=== PATIENT | female | born 1950 | race Asian ===

== ENCOUNTER → 2016-10-03 | Outpatient (CLI) | payer OTHER ==
[~2016-10-03] MED LIST: ALEN35TA32 PO; CALC-590 PO; ESTROGEN PO; METO50 PO; VERA240C PO
== END | disposition home or self-care (01) ==
LOC: EMPHLTH 14:57
PROVIDERS: ATTEND Internal Medicine
DX: I51.7 Cardiomegaly (principal); R91.8 Other nonspecific abnormal finding of lung field

== ENCOUNTER 2017-12-07 18:57 | Emergency (ER) | payer MEDICARE, OTHER ==
[~2017-12-07] VITALS: Ht 149.9 cm; Wt 58.2 kg
[2017-12-07] MEDS ORDERED: TELM1TAB2 PO (19:02)
[2017-12-07] MEDS ORDERED: NIFE10 PO (19:02)
[2017-12-07] MEDS ORDERED: NIFEdipine 10 MG CAPSULE PO ONE ×2 (19:30)
[2017-12-07 19:35] LABS: BASOPHILS % (AUTO) 0.8 % (0.0-2.0); EOSINOPHILS % (AUTO) 5.9 % (1.0-6.0); HEMATOCRIT 43.1 % (36-46); HEMOGLOBIN 14.8 g/dL (12.0-16.0); LYMPHOCYTES # (AUTO) 2.3 K/uL (1.0-4.8); LYMPHOCYTES % (AUTO) 34.3 % (22.0-44.0); MEAN CORPUSCULAR HEMOGLOBIN 29.5 pg (26.0-34.0); MEAN CORPUSCULAR HGB CONC 34.3 G/dL (31.0-37.0); MEAN CORPUSCULAR VOLUME 86 fL (80-100); MONOCYTES # (AUTO) 0.4 K/uL (0.1-1.0); MONOCYTES % (AUTO) 6.7 % (2.0-9.0); NEUTROPHILS # (AUTO) 3.5 K/uL (1.8-7.7); NEUTROPHILS % (AUTO) 52.3 % (40.0-70.0); PLATELET COUNT (AUTO) 231 K/uL (150-450); RED CELL DISTRIBUTION WIDTH 12.9 % (11.5-14.5)
[2017-12-07 19:46] LABS: CALCIUM, TOTAL 10.9 mg/dL (8.8-10.5); CREATININE 0.97 mg/dL (0.60-1.30); POTASSIUM 3.3 mmol/L (3.5-5.1)
[2017-12-07 19:52] LABS: ALBUMIN 3.9 g/dL (3.4-5.0); BILIRUBIN,TOTAL 0.5 mg/dL (0.1-1.0); TOTAL PROTEIN, SERUM 8.3 g/dL (6.4-8.2)
[2017-12-07 20:12] LABS: GLUCOSE,POINT OF CARE 106 MG/DL (70-110)
[2017-12-07 20:56] VITALS: BP 126/71
== END 2017-12-07 20:29 | disposition home or self-care (01) ==
LOC: EMS 18:59
DX: R42 Dizziness and giddiness (principal); I10 Essential (primary) hypertension; Z88.2 Allergy status to sulfonamides; Z90.710 Acquired absence of both cervix and uterus; Z79.899 Other long term (current) drug therapy
CPT/HCPCS: 70450; 82948; 93005; 99285

== ENCOUNTER 2018-12-14 14:08 | Emergency (ER) | payer MEDICARE, OTHER ==
[~2018-12-14] VITALS: Ht 149.9 cm; Wt 57.3 kg
[~2018-12-14 14:08] MED LIST changes: -ALEN35TA32 PO; -ESTROGEN PO; +NIFE10 PO; +TELM1TAB2 PO; -VERA240C PO
[2018-12-14] MEDS ORDERED: METO50 PO (14:12)
[2018-12-14 15:42] LABS: BASOPHILS % (AUTO) 0.8 % (0.0-2.0); EOSINOPHILS % (AUTO) 8.3 % (1.0-6.0); HEMATOCRIT 46.2 % (36-46); HEMOGLOBIN 15.4 g/dL (12.0-16.0); MEAN CORPUSCULAR HEMOGLOBIN 28.5 pg (26.0-34.0); MEAN CORPUSCULAR HGB CONC 33.3 G/dL (31.0-37.0); MEAN CORPUSCULAR VOLUME 86 fL (80-100); MONOCYTES # (AUTO) 0.5 K/uL (0.1-1.0); MONOCYTES % (AUTO) 6.8 % (2.0-9.0); NEUTROPHILS # (AUTO) 3.8 K/uL (1.8-7.7); NEUTROPHILS % (AUTO) 47.1 % (40.0-70.0); PLATELET COUNT (AUTO) 230 K/uL (150-450); RED CELL DISTRIBUTION WIDTH 13.3 % (11.5-14.5)
[2018-12-14 16:02] LABS: CREATININE 0.96 mg/dL (0.60-1.30); POTASSIUM 3.4 mmol/L (3.5-5.1)
[2018-12-14 16:28] LABS: BILIRUBIN,TOTAL 0.4 mg/dL (0.1-1.0); TOTAL PROTEIN, SERUM 8.9 g/dL (6.4-8.2)
[2018-12-14] MEDS ORDERED: POTASSIUM CHLORIDE 20 MEQ ER TABLET PO ONE (17:00)
[2018-12-14 17:23] VITALS: BP 128/75
== END 2018-12-14 17:24 | disposition home or self-care (01) ==
LOC: EMS 14:09
DX: R07.89 Other chest pain (principal); R12 Heartburn; I10 Essential (primary) hypertension; Z90.710 Acquired absence of both cervix and uterus; Z88.2 Allergy status to sulfonamides; Z88.8 Allergy status to other drugs, medicaments and biological substances
CPT/HCPCS: 93005

== ENCOUNTER → 2020-07-16 | Emergency (ER) | payer MEDICARE, OTHER ==
[~2020-07-16] VITALS: Ht 149.9 cm; Wt 53.6 kg
[~2020-07-16] MED LIST changes: +IOVERSOL 350 MG/ML 100 ML VIAL ONE; +POTASSIUM CHLORIDE 20 MEQ ER TABLET PO ONE; +SODIUM CHLORIDE 0.9% 1,000 ML IV ONE; +SODIUM CHLORIDE 0.9% 100 ML ONE; +SODIUM CHLORIDE 0.9% 500 ML IV ONE
[2020-07-16 02:40] LABS: APPEARANCE,URINE CLEAR (CLEAR); BILIRUBIN,URINE NEGATIVE (NEGATIVE); GLUCOSE, URINE (UA) NEGATIVE (NEGATIVE); KETONES,URINE NEGATIVE (NEGATIVE); LEUKOCYTE ESTERASE ,URINE SMALL (NEGATIVE); NITRATE,URINE NEGATIVE (NEGATIVE); OCCULT BLOOD,URINE NEGATIVE (NEGATIVE); PROTEIN,URINE NEGATIVE (NEGATIVE); UROBILINOGEN,URINE 0.2 mg/dL (<=1.0)
[2020-07-16 02:54] LABS: BASOPHILS % (AUTO) 0.4 % (0.0-2.0); HEMOGLOBIN 13.8 g/dL (12.0-16.0); LYMPHOCYTES # (AUTO) 2.7 K/uL (1.0-4.8); LYMPHOCYTES % (AUTO) 36.8 % (22.0-44.0); MEAN CORPUSCULAR HEMOGLOBIN 29.7 pg (26.0-34.0); MEAN CORPUSCULAR HGB CONC 33.5 G/dL (31.0-37.0); MEAN CORPUSCULAR VOLUME 89 fL (80-100); MONOCYTES # (AUTO) 0.5 K/uL (0.1-1.0); MONOCYTES % (AUTO) 6.8 % (2.0-9.0); NEUTROPHILS # (AUTO) 3.4 K/uL (1.8-7.7); PLATELET COUNT (AUTO) 243 K/uL (150-450); RED BLOOD CELL COUNT(AUTO) 4.64 MIL/uL (4.00-5.20); RED CELL DISTRIBUTION WIDTH 13.2 % (11.5-14.5)
[2020-07-16 02:54] LABS: BACTERIA,URINE Rare /HPF (None Seen); RBC,URINE None Seen /HPF (0-2)
[2020-07-16 02:55] LABS: SQUAMOUS EPITHELIAL CELL,UR Rare /LPF (None Seen)
[2020-07-16 03:09] LABS: ALBUMIN 3.7 g/dL (3.4-5.0); BILIRUBIN,TOTAL 0.3 mg/dL (0.1-1.0); CALCIUM, TOTAL 9.5 mg/dL (8.8-10.5); CREATININE 0.97 mg/dL (0.60-1.30); MAGNESIUM 1.9 mg/dL (1.80-2.40); PHOSPHORUS 2.7 mg/dL (2.5-4.9); TOTAL PROTEIN, SERUM 7.8 g/dL (6.4-8.2)
[2020-07-16 03:11] LABS: POTASSIUM 2.7 mmol/L (3.5-5.1)
[2020-07-16] MEDS: POTASSIUM CHL 10 MEQ/WATER 50 ML IV SCH ×3 (03:52→07:29)
[2020-07-16 07:00] LABS: COVID AG,FIA SOURCE NASOPHARYNGEAL
[2020-07-16 11:30] VITALS: BP 127/68
== END | disposition home or self-care (01) ==
LOC: EMS 01:38
DX: E87.6 Hypokalemia (principal); R00.2 Palpitations; I10 Essential (primary) hypertension; Z88.2 Allergy status to sulfonamides; Z90.710 Acquired absence of both cervix and uterus; Z20.828 Contact with and (suspected) exposure to other viral communicable diseases
CPT/HCPCS: 36415; 71045; 71275; 80053; 81001; 82550; 83735; 83880; 84100; 84132; 84484; 85025; 85379; 87086; 87426; 93005; 93971; 96365; 96366; 99285; J3480; J7030; J7040; J7050; Q9967

== ENCOUNTER 2020-07-17 07:13 | Emergency (ER) | payer MEDICARE, OTHER ==
[~2020-07-17] VITALS: Ht 151.1 cm; Wt 53.6 kg
[~2020-07-17 07:13] MED LIST changes: -IOVERSOL 350 MG/ML 100 ML VIAL ONE; -POTASSIUM CHLORIDE 20 MEQ ER TABLET PO ONE; -SODIUM CHLORIDE 0.9% 1,000 ML IV ONE; -SODIUM CHLORIDE 0.9% 100 ML ONE; -SODIUM CHLORIDE 0.9% 500 ML IV ONE
[2020-07-17 08:38] LABS: BASOPHILS % (AUTO) 0.8 % (0.0-2.0); EOSINOPHILS % (AUTO) 10.9 % (1.0-6.0); HEMATOCRIT 42.5 % (36-46); HEMOGLOBIN 14.1 g/dL (12.0-16.0); LYMPHOCYTES # (AUTO) 1.9 K/uL (1.0-4.8); LYMPHOCYTES % (AUTO) 40.5 % (22.0-44.0); MEAN CORPUSCULAR HEMOGLOBIN 29.6 pg (26.0-34.0); MEAN CORPUSCULAR HGB CONC 33.2 G/dL (31.0-37.0); MEAN CORPUSCULAR VOLUME 89 fL (80-100); MONOCYTES # (AUTO) 0.3 K/uL (0.1-1.0); MONOCYTES % (AUTO) 6.4 % (2.0-9.0); NEUTROPHILS # (AUTO) 1.9 K/uL (1.8-7.7); NEUTROPHILS % (AUTO) 41.4 % (40.0-70.0); PLATELET COUNT (AUTO) 246 K/uL (150-450); RED BLOOD CELL COUNT(AUTO) 4.75 MIL/uL (4.00-5.20); RED CELL DISTRIBUTION WIDTH 13.6 % (11.5-14.5)
[2020-07-17 08:46] LABS: ANION GAP 2 mmol/L (8-16); CALCIUM, TOTAL 10.2 mg/dL (8.8-10.5); CARBON DIOXIDE 31 mmol/L (22-29); CHLORIDE 106 mmol/L (98-107); CREATININE 0.85 mg/dL (0.60-1.30); GLOMERULAR FILTR. RATE CALC > 60 mL/min (>60); GLUCOSE,RANDOM 106 mg/dL (70-110); POTASSIUM 4.2 mmol/L (3.5-5.1); SODIUM SERUM 139 mmol/L (136-145); UREA NITROGEN, BLOOD 10 mg/dL (7-18)
[2020-07-17 08:52] LABS: ALANINE AMINOTRANSFERASE 25 U/L (12-78); ALBUMIN 3.7 g/dL (3.4-5.0); ALKALINE PHOSPHATASE 91 U/L (46-116); ASPARTATE AMINOTRANSFERASE 21 U/L (15-37); BILIRUBIN,TOTAL 0.6 mg/dL (0.1-1.0); LIPASE 122 U/L (73-393)
[2020-07-17 11:34] VITALS: BP 146/79
== END 2020-07-17 13:34 | disposition home or self-care (01) ==
LOC: EMS 07:13
DX: R00.2 Palpitations (principal); I10 Essential (primary) hypertension; Z88.2 Allergy status to sulfonamides; Z88.8 Allergy status to other drugs, medicaments and biological substances; Z79.899 Other long term (current) drug therapy
CPT/HCPCS: 82948; 83735; 93005; 36415-L1; 36415-TC; 71045-TC

== ENCOUNTER 2021-01-26 02:47 | Emergency (ER) | payer MEDICARE, OTHER ==
[~2021-01-26] VITALS: Ht 149.9 cm; Wt 47.2 kg
[2021-01-26] MEDS ORDERED: POTA8TAB71 PO (03:05)
[2021-01-26] MEDS ORDERED: SLOMG PO (03:05)
[2021-01-26] MEDS ORDERED: TELM40 PO (03:05)
[2021-01-26] MEDS ORDERED: SODIUM CHLORIDE 0.9% 500 ML IV ONE (03:15)
[2021-01-26 03:30] LABS: EOSINOPHILS % (AUTO) 7.3 % (1.0-6.0); HEMOGLOBIN 14.2 g/dL (12.0-16.0); LYMPHOCYTES # (AUTO) 3.8 K/uL (1.0-4.8); LYMPHOCYTES % (AUTO) 49.6 % (22.0-44.0); MEAN CORPUSCULAR HEMOGLOBIN 29.1 pg (26.0-34.0); MEAN CORPUSCULAR HGB CONC 33.1 G/dL (31.0-37.0); MEAN CORPUSCULAR VOLUME 88 fL (80-100); MONOCYTES # (AUTO) 0.6 K/uL (0.1-1.0); MONOCYTES % (AUTO) 7.3 % (2.0-9.0); NEUTROPHILS # (AUTO) 2.6 K/uL (1.8-7.7); NEUTROPHILS % (AUTO) 34.8 % (40.0-70.0); PLATELET COUNT (AUTO) 214 K/uL (150-450); RED BLOOD CELL COUNT(AUTO) 4.89 MIL/uL (4.00-5.20); RED CELL DISTRIBUTION WIDTH 13.6 % (11.5-14.5)
[2021-01-26] MEDS ORDERED: ONDANSETRON HCL 4 MG/2 ML VIAL IVP ONE (03:30)
[2021-01-26 03:38] LABS: CREATININE 1.16 mg/dL (0.60-1.30)
[2021-01-26 03:41] LABS: PROTHROMBIN TIME 10.2 SEC (9.4-11.6)
[2021-01-26 03:43] LABS: APPEARANCE,URINE CLEAR (CLEAR); BILIRUBIN,URINE NEGATIVE (NEGATIVE); GLUCOSE, URINE (UA) NEGATIVE (NEGATIVE); KETONES,URINE NEGATIVE (NEGATIVE); LEUKOCYTE ESTERASE ,URINE SMALL (NEGATIVE); NITRATE,URINE NEGATIVE (NEGATIVE); OCCULT BLOOD,URINE NEGATIVE (NEGATIVE); PH,URINE 7.5 (5.0-8.0); PROTEIN,URINE NEGATIVE (NEGATIVE); UROBILINOGEN,URINE 0.2 mg/dL (<=1.0)
[2021-01-26 03:51] LABS: BACTERIA,URINE Few /HPF (None Seen); RBC,URINE 0-2 /HPF (0-2)
[2021-01-26 04:03] LABS: ALBUMIN 4.1 g/dL (3.4-5.0); BILIRUBIN,TOTAL 0.5 mg/dL (0.1-1.0); MAGNESIUM 2.1 mg/dL (1.80-2.40); PHOSPHORUS 3.3 mg/dL (2.5-4.9); TOTAL PROTEIN, SERUM 8.5 g/dL (6.4-8.2)
[2021-01-26 04:36] VITALS: BP 124/65
== END 2021-01-26 04:38 | disposition home or self-care (01) ==
LOC: EMS 02:48
DX: R00.2 Palpitations (principal); R42 Dizziness and giddiness; I10 Essential (primary) hypertension; Z88.2 Allergy status to sulfonamides; Z88.8 Allergy status to other drugs, medicaments and biological substances; Z79.899 Other long term (current) drug therapy
CPT/HCPCS: 36415; 71045; 80053; 81001; 82550; 83735; 83880; 84100; 84484; 85025; 85610; 85730; 93005; 96361; 96374; 99285; J2405; J7040

== ENCOUNTER 2021-10-15 00:55 | Emergency (ER) | payer MEDICARE, OTHER ==
[~2021-10-15] VITALS: Ht 149.9 cm; Wt 48.4 kg
[~2021-10-15 00:55] MED LIST changes: +POTA8TAB71 PO; +SLOMG PO; +TELM40 PO
[2021-10-15] MEDS ORDERED: NIFE-39 PO (01:28)
[2021-10-15] MEDS ORDERED: OMEP20 PO (01:28)
[2021-10-15 01:40] LABS: BASOPHILS % (AUTO) 0.6 % (0.0-2.0); EOSINOPHILS % (AUTO) 9.9 % (1.0-6.0); HEMATOCRIT 40.1 % (36-46); HEMOGLOBIN 13.8 g/dL (12.0-16.0); LYMPHOCYTES # (AUTO) 2.6 K/uL (1.0-4.8); LYMPHOCYTES % (AUTO) 42.7 % (22.0-44.0); MEAN CORPUSCULAR HEMOGLOBIN 29.4 pg (26.0-34.0); MEAN CORPUSCULAR HGB CONC 34.3 G/dL (31.0-37.0); MEAN CORPUSCULAR VOLUME 86 fL (80-100); MONOCYTES # (AUTO) 0.5 K/uL (0.1-1.0); MONOCYTES % (AUTO) 8.9 % (2.0-9.0); NEUTROPHILS # (AUTO) 2.3 K/uL (1.8-7.7); NEUTROPHILS % (AUTO) 37.9 % (40.0-70.0); PLATELET COUNT (AUTO) 224 K/uL (150-450); RED BLOOD CELL COUNT(AUTO) 4.68 MIL/uL (4.00-5.20); RED CELL DISTRIBUTION WIDTH 13.8 % (11.5-14.5)
[2021-10-15 01:46] LABS: CALCIUM, TOTAL 9.7 mg/dL (8.8-10.5); CREATININE 1.23 mg/dL (0.60-1.30)
[2021-10-15 01:52] LABS: ALBUMIN 3.6 g/dL (3.4-5.0); BILIRUBIN,TOTAL 0.2 mg/dL (0.1-1.0); TOTAL PROTEIN, SERUM 7.8 g/dL (6.4-8.2)
[2021-10-15 02:10] LABS: MAGNESIUM 2.2 mg/dL (1.80-2.40)
[2021-10-15] MEDS ORDERED: POTASSIUM CHLORIDE 20 MEQ ER TABLET PO ONE (02:15)
[2021-10-15 04:45] VITALS: BP 121/74
== END 2021-10-15 04:58 | disposition home or self-care (01) ==
LOC: EMS 00:56
DX: R00.2 Palpitations (principal); E87.6 Hypokalemia; R07.9 Chest pain, unspecified; I11.9 Hypertensive heart disease without heart failure; Z90.710 Acquired absence of both cervix and uterus; Z88.1 Allergy status to other antibiotic agents; Z88.8 Allergy status to other drugs, medicaments and biological substances
CPT/HCPCS: 71045; 80053; 83735; 84484; 85025; 93005; 99285; 36415-L1; 36415-TC

== ENCOUNTER 2022-12-21 11:22 | Emergency (ER) | payer MEDICARE, OTHER ==
[~2022-12-21] VITALS: Ht 149.9 cm; Wt 55.9 kg
[~2022-12-21 11:22] MED LIST changes: +NIFE-129 PO; -NIFE10 PO; +OMEP20 PO; -TELM40 PO
[2022-12-21 11:29] VITALS: TEMP 98.5
[2022-12-21 13:01] LABS: BASOPHILS % (AUTO) 0.6 % (0.0-2.0); EOSINOPHILS % (AUTO) 4.6 % (1.0-6.0); HEMATOCRIT 45.7 % (36-46); HEMOGLOBIN 15.4 g/dL (12.0-16.0); LYMPHOCYTES # (AUTO) 2.2 K/uL (1.0-4.8); LYMPHOCYTES % (AUTO) 29.6 % (22.0-44.0); MEAN CORPUSCULAR HEMOGLOBIN 29.7 pg (26.0-34.0); MEAN CORPUSCULAR HGB CONC 33.7 G/dL (31.0-37.0); MEAN CORPUSCULAR VOLUME 88 fL (80-100); MONOCYTES # (AUTO) 0.4 K/uL (0.1-1.0); MONOCYTES % (AUTO) 5.5 % (2.0-9.0); NEUTROPHILS # (AUTO) 4.4 K/uL (1.8-7.7); NEUTROPHILS % (AUTO) 59.7 % (40.0-70.0); PLATELET COUNT (AUTO) 229 K/uL (150-450); RED BLOOD CELL COUNT(AUTO) 5.18 MIL/uL (4.00-5.20); RED CELL DISTRIBUTION WIDTH 13.5 % (11.5-14.5)
[2022-12-21 13:12] LABS: CREATININE 1.1 mg/dL (0.60-1.30); POTASSIUM 3.3 mmol/L (3.5-5.1)
[2022-12-21 13:17] LABS: BILIRUBIN,TOTAL 0.7 mg/dL (0.1-1.0); PROTHROMBIN TIME 10.2 SEC (9.4-11.6); TOTAL PROTEIN, SERUM 8.7 g/dL (6.4-8.2)
[2022-12-21 13:44] LABS: MAGNESIUM 2.2 mg/dL (1.80-2.40)
[2022-12-21] MEDS: POTASSIUM CHL 10 MEQ/WATER 50 ML IV SCH ×2 (13:50→15:18)
[2022-12-21 16:43] VITALS: BP 149/82; PULSE 66; RESP 18
== END 2022-12-21 18:24 | disposition home or self-care (01) ==
LOC: EMS 11:25
DX: R07.9 Chest pain, unspecified (principal); E87.6 Hypokalemia; R00.2 Palpitations; I11.9 Hypertensive heart disease without heart failure; Z90.710 Acquired absence of both cervix and uterus; Z88.2 Allergy status to sulfonamides; Z88.8 Allergy status to other drugs, medicaments and biological substances
CPT/HCPCS: 99285; 96365; 71045; 80053; 83735; 83880; 84484; 85025; 85610; 85730; 36415; 93005; J3480

== ENCOUNTER 2023-04-24 14:35 | Emergency (ER) | payer MEDICARE, OTHER ==
[~2023-04-24] VITALS: Ht 149.9 cm; Wt 56.4 kg
[2023-04-24 14:48] VITALS: TEMP 98.6
[2023-04-24] MEDS ORDERED: MAGN400T25 PO (17:45)
[2023-04-24] MEDS ORDERED: PANT40TA54 PO (17:45)
[2023-04-24] MEDS ORDERED: CALC-1271 PO (17:45)
[2023-04-24] MEDS ORDERED: POTA-206 PO (17:45)
[2023-04-24] MEDS ORDERED: METO-416 PO (17:45)
[2023-04-24] MEDS ORDERED: LORA10TA7 PO (17:45)
[2023-04-24] MEDS ORDERED: FAMO20TA8 PO (17:45)
[2023-04-24] MEDS ORDERED: PRAV10TA39 PO (17:45)
[2023-04-24] MEDS ORDERED: ONDANSETRON HCL 4 MG TABLET PO ONE (17:45)
[2023-04-24 19:02] VITALS: BP 164/73; PULSE 64; RESP 16
[2023-04-24] MEDS ORDERED: KETOROLAC TROMETHAMINE 60 MG/2 ML VIAL IM ONE (20:00)
[2023-04-24] MEDS ORDERED: VALS1TAB76 PO (20:33)
== END 2023-04-24 20:54 | disposition home or self-care (01) ==
LOC: EMS 14:35
DX: I11.9 Hypertensive heart disease without heart failure (principal); Z90.710 Acquired absence of both cervix and uterus; Z88.2 Allergy status to sulfonamides; Z88.8 Allergy status to other drugs, medicaments and biological substances
CPT/HCPCS: 99283; 96372; J1885; Q0162